=== PATIENT | female | born 1980 | race Asian ===

== ENCOUNTER → 2017-11-27 | Outpatient (CLI) | payer BC | LOC: FIMAGING 13:14 | PROVIDERS: ATTEND Obstetrics & Gynecology | DX: O09.522 Supervision of elderly multigravida, second trimester (principal); Z3A.20 20 weeks gestation of pregnancy; B19.10 Unspecified viral hepatitis B without hepatic coma; O98.412 Viral hepatitis complicating pregnancy, second trimester; O28.3 Abnormal ultrasonic finding on antenatal screening of mother ==

== ENCOUNTER → 2018-01-18 | Outpatient (CLI) | payer BC | LOC: FIMAGING 13:01 | PROVIDERS: ATTEND Obstetrics & Gynecology | DX: O09.513 Supervision of elderly primigravida, third trimester (principal); B18.1 Chronic viral hepatitis B without delta-agent; Z3A.27 27 weeks gestation of pregnancy ==